=== PATIENT | male | born 1975 | race Caucasian/White ===

== ENCOUNTER 2017-05-24 19:24 | Emergency (ER) | payer MEDICAID ==
[~2017-05-24] VITALS: Ht 170.2 cm; Wt 82.2 kg
[2017-05-24 19:42] VITALS: BP 142/55
--- NOTE | 2017-05-24 19:47 | NUR ---
Patient ambulated to chair C. RN evaluating patient.
--- NOTE | 2017-05-24 20:53 | NUR ---
Patient ambulated to bed 4 for further care. RN evaluating patient at bedside.
--- NOTE | 2017-05-24 20:55 | NUR ---
42/M CAME IN, C/O TESTICULAR PAIN x 1 WEEK, DENIES TRAUMA. PT REPORTS DYSURIA/BURNING WITH URINATION. PT DENIES FEVER, N/V/D. AOX4, AMBULATORY, RR EVEN AND UNLABORED. ER MD DR MCLAUGHLIN AWARE.
--- NOTE | 2017-05-24 22:13 | NUR ---
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
--- NOTE | 2017-05-24 22:16 | NUR ---
Dr. Wheatley evaluating patient at bedside.
[2017-05-24 22:25] LABS: APPEARANCE,URINE CLEAR (CLEAR); BILIRUBIN,URINE NEGATIVE (NEGATIVE); BLOOD, URINE TRACE-L (NEGATIVE); COLOR,URINE YELLOW (YELLOW); LEUKOCYTE ESTERASE ,URINE NEGATIVE (NEGATIVE); NITRITE, URINE NEGATIVE (NEGATIVE); PH,URINE 5.5 (5.0-9.0); UGLUCOSE NEGATIVE (NEGATIVE)
[2017-05-24 22:35] LABS: RBC,URINE 0-5 (RARE) /HPF (0-5); WBC,URINE 0-5 (RARE) /HPF (0-5)
[2017-05-24] MEDS ORDERED: DOXYCYCLINE 100 MG CAP PO SCH (22:40)
[2017-05-24] MEDS ORDERED: cefTRIAXone 250 MG in LIDOCAINE MPF 1% - **ER/OR** 0.9 ML IM ONE (22:40)
[2017-05-24] MEDS ORDERED: AZITHROMYCIN 250 MG TAB PO ONE (23:10)
[2017-05-24] MEDS ORDERED: AZITHROMYCIN 250 MG TAB ONE (23:12)
--- NOTE | 2017-05-24 23:48 | NUR ---
Patient discharged with v/s stable. Written and verbal after care instructions given and explained. Patient alert, oriented and verbalized understanding of instructions. Ambulatory with steady gait. All questions addressed prior to discharge. ID band removed. Patient advised to follow up with PMD. Rx of MOTRIN 600 MG given. Patient educated on indication of medication including possible reaction and side effects. Opportunity to ask questions provided and answered.
[2017-05-24 23:49] VITALS: BP 127/81
== END 2017-05-24 23:46 | disposition home or self-care (01) ==
LOC: MED 19:24
DX: N43.3 Hydrocele, unspecified (principal); R03.0 Elevated blood-pressure reading, without diagnosis of hypertension
CPT/HCPCS: 36415; 76870; 81001; 96372; 99285; J0696; J2001; Q0092; 87490

== ENCOUNTER 2018-05-16 08:05 | Emergency (ER) | payer MEDICAID ==
[~2018-05-16] VITALS: Ht 172.7 cm; Wt 81.6 kg
[2018-05-16 08:19] VITALS: BP 128/74
--- NOTE | 2018-05-16 08:29 | NUR ---
Dr. David evaluating patient at bedside.
--- NOTE | 2018-05-16 08:29 | NUR ---
Patient ambulated to bed 2 with family. RN evaluating patient at bedside.
--- NOTE | 2018-05-16 08:34 | NUR ---
PT BIB FAMILY FOR LT FLANK PAIN X1 HOUR. PT REPORTS SHARP NON-RADIATING FLANK PAIN AFTER SNEEZING AT 8/10 THAT INCREASES WITH MOVEMENT AND SITTING. DENIES TRAUMA, NO SWELLING, BRUISING OR DEFORMITY PRESENT. DENIES PAINFUL BURNING URINATION. PT REPORT N/V AND FEVER X2 DAYS. PT AFEBRILE AT THIS TIME. VSS. ER MD TO SEE PT. MEDHX:STABING IN LT LUNGS RX:NONE
[2018-05-16] MEDS ORDERED: HYDROcodone/APAP 5/325 MG 1 TAB TAB PO ONE (08:40)
[2018-05-16] MEDS ORDERED: LIDOCAINE 1% 500 MG/50 ML VIAL INJ SCH (08:40)
[2018-05-16] MEDS ORDERED: KETOROLAC 60 MG/2 ML VIAL IM ONE (08:40)
[2018-05-16] MEDS ORDERED: LIDOCAINE MPF 1% 5mL VIAL ONE (09:07)
--- NOTE | 2018-05-16 09:17 | NUR ---
Dr. David evaluating patient at bedside.
--- NOTE | 2018-05-16 09:20 | NUR ---
ER MD PERFORMING BEDSIDE PROCEDURE AT THIS TIME
[2018-05-16 10:47] VITALS: BP 122/74
--- NOTE | 2018-05-16 10:47 | NUR ---
Patient discharged with v/s stable. Written and verbal after care instructions given and explained. Patient alert, oriented and verbalized understanding of instructions. Ambulatory with steady gait. All questions addressed prior to discharge. ID band removed. Patient advised to follow up with PMD. Rx of NAPROXYN AND NORCO given. Patient educated on indication of medication including possible reaction and side effects. Opportunity to ask questions provided and answered.
== END 2018-05-16 10:47 | disposition home or self-care (01) ==
LOC: MED 08:05
DX: M54.9 Dorsalgia, unspecified (principal); B34.9 Viral infection, unspecified
CPT/HCPCS: 81002; 96372; 99283; J1885; J2001